=== PATIENT | female | born 1970 | race African-American/Black ===

== ENCOUNTER 2020-05-25 08:59 | Outpatient (CLI) | payer OTHER ==
--- NOTE | 2020-05-25 09:42 | ULT ---
Bilateral renal ultrasound CLINICAL INDICATION: Hypertension. Microalbuminuria urinary. COMPARISON: None. FINDINGS: Right kidney: Mild prominence of the right renal pelvis which improved from prevoid to post void imag ing. No overt hydronephrosis seen. There is no renal mass or renal calculus involving the right kidney.The right kidney measures 11.6 cm x 5.8 cm. Left kidney: There is no evidence of a renal mass, renal calculus, or hydronephrosis. The left kidney measures 10.5 cm x 5.7 cm. Urinary bladder: The prevoid urinary bladder volume is 183.9 mL. Urinary bladder has a normal sonogra phic appearance. Post void urinary bladder volume is 13.2 mL. IMPRESSION: 1. No renal cortical thinning is seen bilaterally. There is no hydronephrosis present. 2. Normal-appearing urinary bladder.
== END 2020-05-25 09:00 | disposition home or self-care (01) ==
LOC: BICULT 08:59
PROVIDERS: ATTEND Family Medicine
DX: I10 Essential (primary) hypertension (principal); R80.9 Proteinuria, unspecified
CPT/HCPCS: 76770